=== PATIENT | male | born 1935 | race Caucasian/White ===

== ENCOUNTER → 2017-02-27 | Outpatient (CLI) | payer MEDICARE ==
[~2017-02-27] MED LIST: AMLO5TAB2 PO; DONE5TAB7 PO; FLUT16SP2 NS; GABA-827 PO; HYDR1TAB12 PO; HYDR25TA6 PO; LOSA100T6 PO; OMEP-110 PO; OMEP40CA6 PO; OXYC5CAP4 PO; PANT40TA3 PO; SUCR1ORA11 PO; TERA10CA3 PO; TRAZ100T15 PO
== END | disposition home or self-care (01) ==
LOC: CFH 09:09
PROVIDERS: ATTEND Genetic Counselor, MS
DX: K76.89 Other specified diseases of liver (principal)
CPT/HCPCS: 76700

== ENCOUNTER 2017-03-07 16:54 | Inpatient (IN) | payer MEDICARE ==
[~2017-03-07] VITALS: Ht 165.1 cm; Wt 60.1 kg
[2017-03-07] MEDS ORDERED: SODIUM CHLORIDE 0.9% 1,000 ML IV ONE ×2 (17:10→19:03)
[2017-03-07] MEDS ORDERED: SODIUM CHLORIDE 0.9% 1,000ML IVBOLUS ONE (17:30)
[2017-03-07] MEDS ORDERED: LEVOFLOXACIN/PMX 750MG/150ML 150 ML IVPB ONE (17:30)
[2017-03-07] MEDS ORDERED: SODIUM CHLORIDE FLUSH 10ML SYR IVF ONE (17:30)
[2017-03-07 17:35] LABS: ASPARTATE AMINO TRANSFERASE 15 U/L (15-37); BLOOD UREA NITROGEN 18 mg/dL (7-18)
[2017-03-07] MEDS: PLEASE ENTER HEIGHT MC SCH (17:39)
[2017-03-07] MEDS ORDERED: LEVOFLOXACIN/PMX 750MG/150ML 150 ML ONE (17:55)
[2017-03-07] MEDS ORDERED: BUPR1PAT TD (18:10)
[2017-03-07 18:22] LABS: ABG COLLECTION SITE RIGHT RADIAL; COLLATERAL CIRCULATION TESTING NORMAL
[2017-03-07] MEDS ORDERED: SODIUM CHLORIDE FLUSH 10ML SYR IVF PRN (19:30)
[2017-03-07] MEDS ORDERED: GUAIFENESIN/DM 200-20MG, 10ML UDC PO PRN (20:00)
[2017-03-07] MEDS ORDERED: ONDANSETRON 2MG/ML, 2ML IVPush PRN (20:00)
[2017-03-07] MEDS: DONEPEZIL 5 MG TABLET PO SCH (21:00)
[2017-03-07] MEDS: SUCRALFATE 1 GM/10 ML UDC PO SCH (21:00)
[2017-03-07] MEDS: GABAPENTIN 400 MG CAPSULE PO SCH (21:00)
[2017-03-07 21:52] VITALS: BP 98/59
[2017-03-07] MEDS: SODIUM CHLORIDE 0.9% 1,000 ML IV SCH (22:32)
[2017-03-07] MEDS: HEPARIN 5,000 UNITS/ML, 1ML SQ SCH (22:48)
[2017-03-07] MEDS: AMPICILLIN/SULBACTAM 3 GM in SODIUM CHLORIDE 0.9% 100 ML IV SCH (22:49)
[2017-03-08] MEDS: PLEASE ENTER HEIGHT MC SCH (01:30)
[2017-03-08 02:00] VITALS: BP 125/69
[2017-03-08] MEDS: AMPICILLIN/SULBACTAM 3 GM in SODIUM CHLORIDE 0.9% 100 ML IV SCH ×3 (05:59→18:20)
[2017-03-08] MEDS: SODIUM CHLORIDE 0.9% 1,000 ML IV SCH ×2 (06:01→16:36)
[2017-03-08] MEDS: HEPARIN 5,000 UNITS/ML, 1ML SQ SCH ×2 (06:03→16:37)
[2017-03-08 06:09] LABS: BLOOD UREA NITROGEN 22 mg/dL (7-18)
[2017-03-08 06:19] LABS: DIFF TOTAL CELLS COUNTED 100 CELL DIFF
[2017-03-08 06:21] LABS: VERIFY COUNTS? YES
[2017-03-08] MEDS: SUCRALFATE 1 GM/10 ML UDC PO SCH ×4 (07:00→20:29)
[2017-03-08 07:25] VITALS: BP 105/50
[2017-03-08] MEDS: GABAPENTIN 400 MG CAPSULE PO SCH ×3 (09:00→20:29)
[2017-03-08] MEDS: PANTOPRAZOLE 40 MG IV IVPush SCH (09:32)
[2017-03-08] MEDS: FLUTICASONE NASAL SPRAY 16GM NAS SCH (10:52)
[2017-03-08 14:06] VITALS: BP 146/62
[2017-03-08] MEDS ORDERED: NICOTINE 7 MG/24 HR PATCH.TD24 TD SCH (18:00)
[2017-03-08 20:00] VITALS: BP 115/79
[2017-03-08] MEDS: ACETAMINOPHEN 325 MG TABLET PO PRN (20:29)
[2017-03-08] MEDS: DONEPEZIL 5 MG TABLET PO SCH (20:30)
[2017-03-09] MEDS: AMPICILLIN/SULBACTAM 3 GM in SODIUM CHLORIDE 0.9% 100 ML IV SCH ×3 (00:35→13:33)
[2017-03-09] MEDS: SODIUM CHLORIDE 0.9% 1,000 ML IV SCH ×2 (00:35→11:02)
[2017-03-09] MEDS: HEPARIN 5,000 UNITS/ML, 1ML SQ SCH ×2 (00:36→08:11)
[2017-03-09 02:00] VITALS: BP 148/65
[2017-03-09] MEDS: ACETAMINOPHEN 325 MG TABLET PO PRN (02:51)
[2017-03-09 07:42] LABS: BLOOD UREA NITROGEN 14 mg/dL (7-18)
[2017-03-09 07:48] LABS: DIFF TOTAL CELLS COUNTED 100 CELL DIFF
[2017-03-09 07:50] LABS: VERIFY COUNTS? YES
[2017-03-09] MEDS: SUCRALFATE 1 GM/10 ML UDC PO SCH ×2 (08:11→12:00)
[2017-03-09] MEDS: PANTOPRAZOLE 40 MG IV IVPush SCH (08:11)
[2017-03-09] MEDS: FLUTICASONE NASAL SPRAY 16GM NAS SCH (08:11)
[2017-03-09] MEDS: GABAPENTIN 400 MG CAPSULE PO SCH (08:12)
[2017-03-09 09:24] VITALS: BP 137/71
[2017-03-09] MEDS ORDERED: KETOROLAC 30 MG/1 ML IVPush ONE ×2 (11:30→12:00)
[2017-03-09] MEDS ORDERED: AMOX1TAB64 PO (12:01)
[2017-03-09 14:00] VITALS: BP 164/67
== END 2017-03-09 14:40 | disposition home or self-care (01) | DRG 871 ==
LOC: EDBD 16:54 → EDSEX 16:54 → MERGE 16:54 → ED 17:08 → EDIP 19:03 → 4EST 20:14
PROVIDERS: ADMIT Hospitalist; ATTEND Hospitalist
DX: A41.9 Sepsis, unspecified organism (principal); G92 Toxic encephalopathy; J69.0 Pneumonitis due to inhalation of food and vomit; J96.91 Respiratory failure, unspecified with hypoxia; E87.2 Acidosis; J90 Pleural effusion, not elsewhere classified; N17.9 Acute kidney failure, unspecified; T40.601A Poisoning by unspecified narcotics, accidental (unintentional), initial encounter; D63.8 Anemia in other chronic diseases classified elsewhere; F02.80 Dementia in other diseases classified elsewhere, unspecified severity, without behavioral disturbance, psychotic disturbance, mood disturbance, and anxiety; G30.9 Alzheimer's disease, unspecified; G47.30 Sleep apnea, unspecified; G89.29 Other chronic pain; I10 Essential (primary) hypertension; I44.7 Left bundle-branch block, unspecified; I73.9 Peripheral vascular disease, unspecified; K21.9 Gastro-esophageal reflux disease without esophagitis; K59.00 Constipation, unspecified; N40.0 Benign prostatic hyperplasia without lower urinary tract symptoms; Z79.891 Long term (current) use of opiate analgesic; Z85.118 Personal history of other malignant neoplasm of bronchus and lung; Z88.0 Allergy status to penicillin; Z90.2 Acquired absence of lung [part of]; Y92.89 Other specified places as the place of occurrence of the external cause
CPT/HCPCS: 36415; 36600; 70450; 71010; 80047; 80048; 80053; 81003; 82570; 82803; 83605; 83880; 84132; 84145; 84300; 84484; 85025; 85610; 85730; 87040; 87070; 87205; 93005; 96361; 96365; J0295; J1644; J1885; J1956; C9113; J7030

== ENCOUNTER 2018-07-10 19:02 | Inpatient (IN) | payer MEDICARE ==
[~2018-07-10] VITALS: Ht 162.6 cm; Wt 67.5 kg
[~2018-07-10 19:02] MED LIST changes: -AMLO5TAB2 PO; +AMLO5TAB7 PO; +AMOX1TAB64 PO; +BUPR1PAT7 TD; -LOSA100T6 PO; +LOSA100T7 PO; +OXYC5CAP2 PO; -OXYC5CAP4 PO; +TRAZ-137 PO; -TRAZ100T15 PO
[2018-07-10] MEDS ORDERED: HYDROmorphone 2 MG/ML, 1ML ONE ×2 (19:18→20:33)
[2018-07-10] MEDS ORDERED: SODIUM CHLORIDE FLUSH 10ML SYR IVF ONE (19:30)
[2018-07-10] MEDS ORDERED: ONDANSETRON 2MG/ML, 2ML IVPush ONE (19:30)
[2018-07-10] MEDS: HYDROmorphone 2 MG/ML, 1ML IVPush PRN ×2 (19:32→20:41)
[2018-07-10 19:44] LABS: BASOPHILS # (AUTO) 0.05 x10^3/uL (0-0.1); BASOPHILS % (AUTO) 0 % (0-1); EOSINOPHILS # (AUTO) 0.03 x10^3/uL (0-0.4); EOSINOPHILS % (AUTO) 0 % (1-7); LYMPHOCYTES # (AUTO) 1.07 x10^3/uL (1-3.4); LYMPHOCYTES % (AUTO) 8 % (22-44); MD NO; MEAN CORPUSCULAR HEMOGLOBIN 31.5 pg (27.5-34.5); MEAN CORPUSCULAR HGB CONC 33.3 g/dL (33.2-36.2); MEAN CORPUSCULAR VOLUME 94.4 fL (81-97); MEAN PLATELET VOLUME 6.5 fL (7.4-10.4); MONOCYTES # (AUTO) 0.72 x10^3/uL (0.2-0.8); MONOCYTES % (AUTO) 5 % (2-9); NEUTROPHILS # (AUTO) 11.88 x10^3/uL (1.8-6.8); NEUTROPHILS % (AUTO) 86 % (42-75); PLATELET COUNT 239 x10^3/uL (130-400); RED BLOOD COUNT 4.47 x10^6/uL (4.38-5.82); RED CELL DISTRIBUTION WIDTH 13.9 % (9.4-14.8)
[2018-07-10 19:55] LABS: ALBUMIN 3.5 g/dL (3.4-5.0); ANION GAP 7 mmol/L (5-15); CALCIUM 8.4 mg/dL (8.5-10.1); CHLORIDE 107 mmol/L (98-107); CREATININE 1.02 mg/dL (0.7-1.3)
[2018-07-10 19:58] LABS: INTERNATIONAL NORMALIZED RATIO 1.03 (0.93-1.1); PROTHROMBIN TIME 10.7 Seconds (9.6-11.5)
[2018-07-10] MEDS ORDERED: BISACODYL 10 MG SUPP PR PRN (21:30)
[2018-07-10] MEDS ORDERED: ONDANSETRON ODT 4 MG PO PRN (21:30)
[2018-07-10] MEDS: GABAPENTIN 400 MG CAPSULE PO SCH (23:00)
[2018-07-10] MEDS: DONEPEZIL 5 MG TABLET PO SCH (23:00)
[2018-07-10] MEDS: SUCRALFATE 1 GM TABLET PO SCH (23:00)
[2018-07-10] MEDS: SODIUM CHLORIDE 0.9% 1,000 ML IV SCH (23:00)
[2018-07-10] MEDS: morphine SULFATE 10 MG/ML, 1ML IVPush PRN ×2 (23:24→23:41)
[2018-07-10 23:42] VITALS: BP 168/66
[2018-07-11] MEDS ORDERED: TRAZ-136 PO (00:14)
[2018-07-11] MEDS ORDERED: CYCL5TAB PO (00:14)
[2018-07-11] MEDS ORDERED: ALBU8.5H8 INH (00:14)
[2018-07-11 01:41] VITALS: BP 105/55
[2018-07-11] MEDS: SUCRALFATE 1 GM TABLET PO SCH ×4 (04:58→19:41)
[2018-07-11 05:26] LABS: BASOPHILS # (AUTO) 0.03 x10^3/uL (0-0.1); BASOPHILS % (AUTO) 0 % (0-1); EOSINOPHILS # (AUTO) 0.07 x10^3/uL (0-0.4); EOSINOPHILS % (AUTO) 1 % (1-7); LYMPHOCYTES # (AUTO) 1.56 x10^3/uL (1-3.4); LYMPHOCYTES % (AUTO) 20 % (22-44); MD NO; MEAN CORPUSCULAR HEMOGLOBIN 31.6 pg (27.5-34.5); MEAN CORPUSCULAR HGB CONC 33.4 g/dL (33.2-36.2); MEAN CORPUSCULAR VOLUME 94.7 fL (81-97); MEAN PLATELET VOLUME 6.6 fL (7.4-10.4); MONOCYTES # (AUTO) 0.66 x10^3/uL (0.2-0.8); MONOCYTES % (AUTO) 9 % (2-9); NEUTROPHILS # (AUTO) 5.46 x10^3/uL (1.8-6.8); NEUTROPHILS % (AUTO) 70 % (42-75); PLATELET COUNT 209 x10^3/uL (130-400); RED BLOOD COUNT 3.87 x10^6/uL (4.38-5.82); RED CELL DISTRIBUTION WIDTH 13.9 % (9.4-14.8)
[2018-07-11 05:33] LABS: ANION GAP 7 mmol/L (5-15); CALCIUM 7.8 mg/dL (8.5-10.1); CHLORIDE 107 mmol/L (98-107)
[2018-07-11 05:38] LABS: ALANINE AMINOTRANSFERASE 22 U/L (12-78); ALKALINE PHOSPHATASE 69 U/L (45-117); BILIRUBIN,TOTAL 0.6 mg/dL (0.2-1.0); CREATININE 1.04 mg/dL (0.7-1.3); TOTAL PROTEIN 6.5 g/dL (6.4-8.2)
[2018-07-11] MEDS ORDERED: FENTANYL PF 250 MCG/5ML ONE (06:57)
[2018-07-11] MEDS ORDERED: ROCURONIUM 10MG/ML,5ML ONE (07:00)
[2018-07-11] MEDS ORDERED: PROPOFOL 10 MG/ML, 20ML ONE (07:01)
[2018-07-11] MEDS ORDERED: BACITRACIN 50,000 UNIT ONE (07:09)
[2018-07-11] MEDS ORDERED: SUCCINYLCHOLINE 20 MG/ML, 10ML ONE (07:12)
[2018-07-11] MEDS ORDERED: CEFAZOLIN 1,000 MG ONE (07:12)
[2018-07-11] MEDS ORDERED: VASOPRESSIN 20 UNIT/ML, 1ML ONE (07:28)
[2018-07-11] MEDS ORDERED: ALBUTEROL HFA 90 MCG/SPRAY ONE (07:28)
[2018-07-11] MEDS ORDERED: EPHEDRINE 50 MG/ML, 1ML IVPush PRN (07:30)
[2018-07-11] MEDS ORDERED: LABETALOL 5MG/ML, 20ML IV PRN (07:30)
[2018-07-11] MEDS ORDERED: ONDANSETRON ODT 8 MG PO PRN (07:30)
[2018-07-11] MEDS ORDERED: MEPERIDINE/PF 25MG/0.5ML IVPush PRN (07:30)
[2018-07-11] MEDS ORDERED: ONDANSETRON 2MG/ML, 2ML IV PRN (07:30)
[2018-07-11] MEDS ORDERED: hydrALAzine 20 MG/ML, 1ML IV PRN (07:30)
[2018-07-11] MEDS ORDERED: LORazepam 2 MG/ML, 1ML IVPush PRN (07:30)
[2018-07-11] MEDS ORDERED: HYDROmorphone 1 MG/ML, 1ML IV PRN (07:30)
[2018-07-11] MEDS ORDERED: PROMETHAZINE 12.5 MG SUPP PR PRN (07:30)
[2018-07-11] MEDS ORDERED: ACETAMINOPHEN 325 MG TABLET PO PRN (07:30)
[2018-07-11] MEDS ORDERED: MORPHINE SULFATE 4 MG/ML, 1ML IVPush PRN (07:30)
[2018-07-11] MEDS ORDERED: PROMETHAZINE 25 MG/ML, 1ML IV PRN (07:30)
[2018-07-11] MEDS ORDERED: MIDAZOLAM 1 MG/ML, 2ML IV PRN (07:30)
[2018-07-11] MEDS ORDERED: HALOPERIDOL 5 MG/ML IV PRN (07:30)
[2018-07-11] MEDS ORDERED: ALBUTEROL SULFATE 2.5 MG/3 ML NPPB PRN (07:30)
[2018-07-11] MEDS ORDERED: ONDANSETRON 2MG/ML, 2ML ONE (08:45)
[2018-07-11] MEDS ORDERED: DEXAMETHASONE 4 MG/ML, 1ML ONE ×2 (08:45)
[2018-07-11] MEDS ORDERED: KETOROLAC 30 MG/1 ML ONE (09:00)
[2018-07-11] MEDS: FLUTICASONE NASAL SPRAY 16GM NAS SCH (09:00)
[2018-07-11] MEDS ORDERED: OXYcodone 5 MG/5 ML ORAL.SOL UDC ONE ×2 (09:01→09:38)
[2018-07-11] MEDS ORDERED: FENTANYL PF 100 MCG/2ML ONE (09:01)
[2018-07-11] MEDS: FENTANYL PF 100 MCG/2ML IV PRN ×4 (09:15→09:30)
[2018-07-11] MEDS: OXYcodone 5 MG/5 ML ORAL.SOL UDC PO PRN ×2 (09:20→09:40)
[2018-07-11] MEDS ORDERED: MEPERIDINE/PF 50 MG/ML ONE (09:30)
[2018-07-11] MEDS ORDERED: SUCRALFATE 1 GM/10 ML UDC ONE ×3 (11:14→19:36)
[2018-07-11] MEDS: TERAZOSIN 5MG CAPSULE PO SCH (11:19)
[2018-07-11] MEDS: GABAPENTIN 400 MG CAPSULE PO SCH ×3 (11:19→21:10)
[2018-07-11] MEDS: PANTOPROZOLE 40MG TABLET PO SCH (11:21)
[2018-07-11] MEDS: SODIUM CHLORIDE 0.9% 1,000 ML IV SCH (11:21)
[2018-07-11] MEDS: CEFAZOLIN PMX 2GM/50ML 50 ML IVPB SCH ×2 (11:27→19:24)
[2018-07-11 11:35] VITALS: BP 104/62
[2018-07-11] MEDS ORDERED: ENOXAPARIN 40 MG/0.4 ML SQ SCH (12:30)
[2018-07-11] MEDS: morphine SULFATE 10 MG/ML, 1ML IVPush PRN ×3 (12:31→19:40)
[2018-07-11 13:42] VITALS: BP 103/46
[2018-07-11] MEDS: ACETAMINOPHEN 325 MG TABLET PO PRN ×2 (14:38→21:10)
[2018-07-11] MEDS: METHOCARBAMOL 500 MG TABLET PO PRN (14:38)
[2018-07-11 19:26] VITALS: BP 93/42
[2018-07-11] MEDS: DONEPEZIL 5 MG TABLET PO SCH (21:10)
[2018-07-11 22:28] LABS: CLOSTRIDIUM DIFFICILE ANTIGEN NEGATIVE; CLOSTRIDIUM DIFFICILE TOXIN NEGATIVE (Negative)
[2018-07-12 00:50] VITALS: BP 91/49
[2018-07-12] MEDS: morphine SULFATE 10 MG/ML, 1ML IVPush PRN ×6 (01:06→21:06)
[2018-07-12] MEDS: METHOCARBAMOL 500 MG TABLET PO PRN ×2 (01:19→18:05)
[2018-07-12 04:14] VITALS: BP 107/50
[2018-07-12] MEDS: SODIUM CHLORIDE 0.9% 1,000 ML IV SCH (04:20)
[2018-07-12 05:30] LABS: CHLORIDE 107 mmol/L (98-107)
[2018-07-12 05:32] LABS: BASOPHILS # (AUTO) 0.02 x10^3/uL (0-0.1); BASOPHILS % (AUTO) 0 % (0-1); EOSINOPHILS % (AUTO) 0 % (1-7); LYMPHOCYTES # (AUTO) 1.35 x10^3/uL (1-3.4); LYMPHOCYTES % (AUTO) 13 % (22-44); MD NO; MEAN CORPUSCULAR HEMOGLOBIN 31.8 pg (27.5-34.5); MEAN CORPUSCULAR HGB CONC 33.7 g/dL (33.2-36.2); MEAN CORPUSCULAR VOLUME 94.5 fL (81-97); MEAN PLATELET VOLUME 7.2 fL (7.4-10.4); MONOCYTES # (AUTO) 0.71 x10^3/uL (0.2-0.8); MONOCYTES % (AUTO) 7 % (2-9); NEUTROPHILS # (AUTO) 8.32 x10^3/uL (1.8-6.8); NEUTROPHILS % (AUTO) 80 % (42-75); PLATELET COUNT 190 x10^3/uL (130-400); RED BLOOD COUNT 2.84 x10^6/uL (4.38-5.82); RED CELL DISTRIBUTION WIDTH 14.1 % (9.4-14.8)
[2018-07-12 05:41] LABS: ALANINE AMINOTRANSFERASE 18 U/L (12-78); ALBUMIN 2.7 g/dL (3.4-5.0); ALKALINE PHOSPHATASE 54 U/L (45-117); ANION GAP 11 mmol/L (5-15); BILIRUBIN,TOTAL 0.4 mg/dL (0.2-1.0); CALCIUM 7.8 mg/dL (8.5-10.1); CREATININE 1.77 mg/dL (0.7-1.3); TOTAL PROTEIN 5.8 g/dL (6.4-8.2)
[2018-07-12 07:15] VITALS: BP 120/49
[2018-07-12] MEDS: SUCRALFATE 1 GM TABLET PO SCH ×4 (07:22→21:06)
[2018-07-12] MEDS ORDERED: SUCRALFATE 1 GM/10 ML UDC ONE ×3 (08:23→16:53)
[2018-07-12] MEDS: TERAZOSIN 5MG CAPSULE PO SCH (08:32)
[2018-07-12] MEDS: GABAPENTIN 400 MG CAPSULE PO SCH ×3 (08:32→21:06)
[2018-07-12] MEDS: PANTOPROZOLE 40MG TABLET PO SCH (08:32)
[2018-07-12] MEDS: FLUTICASONE NASAL SPRAY 16GM NAS SCH (08:32)
[2018-07-12] MEDS ORDERED: ENOXAPARIN 30 MG/0.3 ML SQ SCH (12:30)
[2018-07-12 13:08] VITALS: BP 122/45
[2018-07-12] MEDS: HYDROcodone/APAP 5/325 TABLET PO PRN ×2 (18:08→22:56)
[2018-07-12 19:28] VITALS: BP 104/37
[2018-07-12] MEDS: DONEPEZIL 5 MG TABLET PO SCH (21:06)
[2018-07-13] VITALS (10 sets, daily range): BP systolic 111–144; BP diastolic 49–63
[2018-07-13] MEDS: morphine SULFATE 10 MG/ML, 1ML IVPush PRN ×2 (00:58→05:04)
[2018-07-13] MEDS: SODIUM CHLORIDE 0.9% 1,000 ML IV SCH ×3 (00:59→20:09)
[2018-07-13] MEDS: HYDROcodone/APAP 5/325 TABLET PO PRN ×5 (02:53→22:02)
[2018-07-13] MEDS: METHOCARBAMOL 500 MG TABLET PO PRN ×3 (02:53→22:02)
[2018-07-13 05:34] LABS: BASOPHILS # (AUTO) 0.02 x10^3/uL (0-0.1); BASOPHILS % (AUTO) 0 % (0-1); EOSINOPHILS # (AUTO) 0.07 x10^3/uL (0-0.4); EOSINOPHILS % (AUTO) 1 % (1-7); LYMPHOCYTES # (AUTO) 1.53 x10^3/uL (1-3.4); LYMPHOCYTES % (AUTO) 19 % (22-44); MD NO; MEAN CORPUSCULAR HEMOGLOBIN 31.4 pg (27.5-34.5); MEAN CORPUSCULAR HGB CONC 33.2 g/dL (33.2-36.2); MEAN CORPUSCULAR VOLUME 94.6 fL (81-97); MEAN PLATELET VOLUME 7.1 fL (7.4-10.4); MONOCYTES # (AUTO) 0.63 x10^3/uL (0.2-0.8); MONOCYTES % (AUTO) 8 % (2-9); NEUTROPHILS # (AUTO) 5.79 x10^3/uL (1.8-6.8); NEUTROPHILS % (AUTO) 72 % (42-75); PLATELET COUNT 128 x10^3/uL (130-400); RED BLOOD COUNT 2.03 x10^6/uL (4.38-5.82); RED CELL DISTRIBUTION WIDTH 14.2 % (9.4-14.8)
[2018-07-13 05:43] LABS: ALBUMIN 2.4 g/dL (3.4-5.0); ANION GAP 4 mmol/L (5-15); CALCIUM 7.5 mg/dL (8.5-10.1); CHLORIDE 110 mmol/L (98-107)
[2018-07-13 05:46] LABS: BILIRUBIN,TOTAL 0.3 mg/dL (0.2-1.0)
[2018-07-13 05:47] LABS: ALANINE AMINOTRANSFERASE 16 U/L (12-78); ALKALINE PHOSPHATASE 46 U/L (45-117); TOTAL PROTEIN 5.4 g/dL (6.4-8.2)
[2018-07-13] MEDS: SUCRALFATE 1 GM TABLET PO SCH ×4 (06:49→20:09)
[2018-07-13] MEDS: GABAPENTIN 400 MG CAPSULE PO SCH ×3 (10:31→20:08)
[2018-07-13] MEDS: TERAZOSIN 5MG CAPSULE PO SCH (10:31)
[2018-07-13] MEDS: PANTOPROZOLE 40MG TABLET PO SCH (10:31)
[2018-07-13] MEDS ORDERED: SUCRALFATE 1 GM/10 ML UDC ONE ×2 (11:40→16:32)
[2018-07-13] MEDS ORDERED: ENOXAPARIN 40 MG/0.4 ML SQ SCH (12:30)
[2018-07-13] MEDS: FLUTICASONE NASAL SPRAY 16GM NAS SCH (14:07)
[2018-07-13] MEDS: DONEPEZIL 5 MG TABLET PO SCH (20:09)
[2018-07-14] MEDS: morphine SULFATE 10 MG/ML, 1ML IVPush PRN ×4 (00:03→22:56)
[2018-07-14 01:20] VITALS: BP 133/52
[2018-07-14] MEDS: HYDROcodone/APAP 5/325 TABLET PO PRN ×6 (01:59→22:57)
[2018-07-14] MEDS: SODIUM CHLORIDE 0.9% 1,000 ML IV SCH ×3 (04:11→20:00)
[2018-07-14 05:34] LABS: ALBUMIN 2.5 g/dL (3.4-5.0); CHLORIDE 109 mmol/L (98-107)
[2018-07-14 05:37] LABS: ALANINE AMINOTRANSFERASE 16 U/L (12-78); ALKALINE PHOSPHATASE 49 U/L (45-117); ANION GAP 6 mmol/L (5-15); BILIRUBIN,TOTAL 0.6 mg/dL (0.2-1.0); CALCIUM 7.4 mg/dL (8.5-10.1); CREATININE 0.77 mg/dL (0.7-1.3); TOTAL PROTEIN 5.6 g/dL (6.4-8.2)
[2018-07-14 05:46] LABS: BASOPHILS # (AUTO) 0.02 x10^3/uL (0-0.1); BASOPHILS % (AUTO) 0 % (0-1); EOSINOPHILS # (AUTO) 0.11 x10^3/uL (0-0.4); EOSINOPHILS % (AUTO) 2 % (1-7); LYMPHOCYTES # (AUTO) 1.17 x10^3/uL (1-3.4); LYMPHOCYTES % (AUTO) 17 % (22-44); MD NO; MEAN CORPUSCULAR HEMOGLOBIN 30.6 pg (27.5-34.5); MEAN CORPUSCULAR HGB CONC 33.3 g/dL (33.2-36.2); MEAN CORPUSCULAR VOLUME 91.8 fL (81-97); MEAN PLATELET VOLUME 7.1 fL (7.4-10.4); MONOCYTES # (AUTO) 0.59 x10^3/uL (0.2-0.8); MONOCYTES % (AUTO) 8 % (2-9); NEUTROPHILS # (AUTO) 5.21 x10^3/uL (1.8-6.8); NEUTROPHILS % (AUTO) 73 % (42-75); PLATELET COUNT 130 x10^3/uL (130-400); RED BLOOD COUNT 2.77 x10^6/uL (4.38-5.82); RED CELL DISTRIBUTION WIDTH 15.2 % (9.4-14.8)
[2018-07-14] MEDS: METHOCARBAMOL 500 MG TABLET PO PRN ×2 (06:06→13:44)
[2018-07-14] MEDS: SUCRALFATE 1 GM TABLET PO SCH ×4 (06:06→20:34)
[2018-07-14 08:15] VITALS: BP 143/80
[2018-07-14] MEDS ORDERED: ENOXAPARIN 30 MG/0.3 ML SQ SCH (08:30)
[2018-07-14] MEDS: GUAIFENESIN 200 MG TABLET PO SCH ×3 (10:29→20:34)
[2018-07-14] MEDS: PANTOPROZOLE 40MG TABLET PO SCH (10:29)
[2018-07-14] MEDS: TERAZOSIN 5MG CAPSULE PO SCH (10:32)
[2018-07-14] MEDS: GABAPENTIN 400 MG CAPSULE PO SCH ×3 (10:34→20:34)
[2018-07-14] MEDS: FLUTICASONE NASAL SPRAY 16GM NAS SCH (10:36)
[2018-07-14] MEDS: ACETAMINOPHEN 325 MG TABLET PO PRN (13:45)
[2018-07-14 14:00] VITALS: BP 148/62
[2018-07-14] MEDS ORDERED: BENZOCAINE 20% SPRAY 0.5ML TP PRN (20:30)
[2018-07-14] MEDS: DONEPEZIL 5 MG TABLET PO SCH (20:34)
[2018-07-14 21:55] VITALS: BP 170/54
[2018-07-15 02:39] VITALS: BP 146/78
[2018-07-15] MEDS: HYDROcodone/APAP 5/325 TABLET PO PRN ×4 (02:48→15:34)
[2018-07-15] MEDS: morphine SULFATE 10 MG/ML, 1ML IVPush PRN ×3 (03:57→15:34)
[2018-07-15] MEDS: SODIUM CHLORIDE 0.9% 1,000 ML IV SCH (04:00)
[2018-07-15 05:30] LABS: BASOPHILS # (AUTO) 0.03 x10^3/uL (0-0.1); BASOPHILS % (AUTO) 0 % (0-1); EOSINOPHILS # (AUTO) 0.12 x10^3/uL (0-0.4); EOSINOPHILS % (AUTO) 2 % (1-7); LYMPHOCYTES # (AUTO) 1.05 x10^3/uL (1-3.4); LYMPHOCYTES % (AUTO) 13 % (22-44); MD NO; MEAN CORPUSCULAR HEMOGLOBIN 30.9 pg (27.5-34.5); MEAN CORPUSCULAR HGB CONC 33.9 g/dL (33.2-36.2); MEAN CORPUSCULAR VOLUME 91.2 fL (81-97); MEAN PLATELET VOLUME 7.2 fL (7.4-10.4); MONOCYTES % (AUTO) 7 % (2-9); NEUTROPHILS # (AUTO) 6.29 x10^3/uL (1.8-6.8); NEUTROPHILS % (AUTO) 78 % (42-75); PLATELET COUNT 185 x10^3/uL (130-400); RED BLOOD COUNT 2.98 x10^6/uL (4.38-5.82); RED CELL DISTRIBUTION WIDTH 14.7 % (9.4-14.8)
[2018-07-15 05:40] LABS: CHLORIDE 106 mmol/L (98-107)
[2018-07-15 05:45] LABS: ANION GAP 8 mmol/L (5-15); CALCIUM 8.2 mg/dL (8.5-10.1); CREATININE 0.73 mg/dL (0.7-1.3)
[2018-07-15 06:17] LABS: TROPONIN I 0.024 ng/mL (0.000-0.045)
[2018-07-15] MEDS: SUCRALFATE 1 GM TABLET PO SCH ×3 (06:42→15:41)
[2018-07-15] MEDS ORDERED: ENOXAPARIN 40 MG/0.4 ML SQ SCH (07:00)
[2018-07-15] MEDS ORDERED: ENALAPRILAT 1.25 MG/ML, 2ML ONE (07:22)
[2018-07-15 07:26] VITALS: BP 106/64
[2018-07-15] MEDS ORDERED: ENALAPRILAT 1.25 MG/ML, 2ML IV PRN ×2 (07:30)
[2018-07-15 07:36] LABS: TROPONIN I 0.023 ng/mL (0.000-0.045)
[2018-07-15] MEDS: FLUTICASONE NASAL SPRAY 16GM NAS SCH (08:00)
[2018-07-15 08:01] VITALS: BP_SYST 112; BP_SYST 145; BP_DIAS 71; BP_DIAS 94
[2018-07-15] MEDS: TERAZOSIN 5MG CAPSULE PO SCH (08:03)
[2018-07-15] MEDS: METHOCARBAMOL 500 MG TABLET PO PRN ×2 (08:03→15:34)
[2018-07-15] MEDS: GABAPENTIN 400 MG CAPSULE PO SCH ×2 (08:03→15:34)
[2018-07-15] MEDS: GUAIFENESIN 200 MG TABLET PO SCH ×2 (08:03→15:34)
[2018-07-15] MEDS: PANTOPROZOLE 40MG TABLET PO SCH (08:03)
[2018-07-15 08:07] VITALS: BP 173/64
[2018-07-15] MEDS ORDERED: HYDR-3240 PO (11:44)
[2018-07-15] MEDS ORDERED: METH500T7 PO (11:44)
[2018-07-15] MEDS ORDERED: TRAM50TA2 PO (11:44)
[2018-07-15] MEDS ORDERED: ONDA4TAB13 PO (11:44)
[2018-07-15] MEDS ORDERED: ASPI325T17 PO (11:46)
[2018-07-15] MEDS ORDERED: NYST1000 PO (14:56)
[2018-07-15 15:17] VITALS: BP 162/70
[2018-07-15] MEDS ORDERED: FLUCONAZOLE 200 MG/100 ML 100 ML IV SCH (16:30)
== END 2018-07-15 17:00 | DRG 480 ==
LOC: ED 20:17 → EDIP 21:26 → 4NOR 22:00
PROVIDERS: ADMIT Hospitalist; ATTEND Internal Medicine
PROC: 0QS606Z Reposition Right Upper Femur with Intramedullary Internal Fixation Device, Open Approach (ICD-10-PCS; principal; 2018-07-11 07:00)
PROC: 30233N1 Transfusion of Nonautologous Red Blood Cells into Peripheral Vein, Percutaneous Approach (ICD-10-PCS; 2018-07-13)
DX: S72.21XA Displaced subtrochanteric fracture of right femur, initial encounter for closed fracture (principal); N17.0 Acute kidney failure with tubular necrosis; B37.0 Candidal stomatitis; D62 Acute posthemorrhagic anemia; I45.2 Bifascicular block; W11.XXXA Fall on and from ladder, initial encounter; M51.34 Other intervertebral disc degeneration, thoracic region; M51.36 Other intervertebral disc degeneration, lumbar region; D72.829 Elevated white blood cell count, unspecified; G30.9 Alzheimer's disease, unspecified; F02.80 Dementia in other diseases classified elsewhere, unspecified severity, without behavioral disturbance, psychotic disturbance, mood disturbance, and anxiety; G89.29 Other chronic pain; I10 Essential (primary) hypertension; I95.9 Hypotension, unspecified; S41.101A Unspecified open wound of right upper arm, initial encounter; I73.9 Peripheral vascular disease, unspecified; K21.9 Gastro-esophageal reflux disease without esophagitis; K90.0 Celiac disease; M47.816 Spondylosis without myelopathy or radiculopathy, lumbar region; N40.0 Benign prostatic hyperplasia without lower urinary tract symptoms; Z83.3 Family history of diabetes mellitus; Z85.118 Personal history of other malignant neoplasm of bronchus and lung; Y93.89 Activity, other specified; Y92.89 Other specified places as the place of occurrence of the external cause; Z87.891 Personal history of nicotine dependence; Z98.41 Cataract extraction status, right eye; Z98.42 Cataract extraction status, left eye; Z87.01 Personal history of pneumonia (recurrent); Z88.0 Allergy status to penicillin; Z88.6 Allergy status to analgesic agent; Z91.040 Latex allergy status
CPT/HCPCS: 36415; 51702; 71045; 72040; 72072; 72100; 76001; 80048; 80053; 82040; 83735; 84100; 84484; 85025; 85610; 85730; 86850; 86900; 86923; 87324; 93005; 99285; C1713; G0378; J0690; J1100; J1170; J1650; J1885; J2175; J2405; J2704; J3010; J0330; J1450; J2270; J7030; P9016

== ENCOUNTER → 2018-11-22 | Outpatient (CLI) | payer MEDICARE ==
[~2018-11-22] MED LIST changes: +ALBU8.5H8 INH; +AMLO-150 PO; -AMLO5TAB7 PO; +ASPI325T17 PO; +CYCL5TAB PO; +HYDR-3240 PO; +LOSA100T14 PO; -LOSA100T7 PO; +METH500T7 PO; +NYST1000 PO; +ONDA4TAB13 PO; +TRAM50TA2 PO; +TRAZ50TA66 PO
== END | disposition home or self-care (01) ==
LOC: CFH 09:18
DX: M51.37 Other intervertebral disc degeneration, lumbosacral region (principal); M43.8X6 Other specified deforming dorsopathies, lumbar region; M48.061 Spinal stenosis, lumbar region without neurogenic claudication; M25.78 Osteophyte, vertebrae
CPT/HCPCS: 72120; 72148

== ENCOUNTER → 2019-12-12 | Outpatient (CLI) | payer MEDICARE ==
[~2019-12-12] MED LIST changes: -HYDR1TAB12 PO; +HYDR1TAB13 PO; +OMEP40CA42 PO; -OMEP40CA6 PO; -SUCR1ORA11 PO; +SUCR1ORA14 PO; -TRAZ-137 PO; +TRAZ-175 PO
== END | disposition home or self-care (01) ==
LOC: CVU 08:37
PROVIDERS: ATTEND Nurse Practitioner Family
DX: I70.293 Other atherosclerosis of native arteries of extremities, bilateral legs (principal); I10 Essential (primary) hypertension; F17.200 Nicotine dependence, unspecified, uncomplicated; Z85.118 Personal history of other malignant neoplasm of bronchus and lung
CPT/HCPCS: 93922; 93925

== ENCOUNTER 2020-07-31 11:44 | Emergency (ER) | payer MEDICARE ==
[~2020-07-31] VITALS: Ht 152.4 cm; Wt 53.8 kg
--- NOTE | 2020-07-31 12:43 | NUR ---
Pt arrives from pain clinic after it was noted pt was suffering from hypoxemia. Pt found in low 50% room air and no interventions did not help. Pt in triage was 75% for us. Pt reports he feels fine and on a few liters of o2 has recovered well. Pt has no complaints at this time. Pt denies no truama.
[2020-07-31 13:10] LABS: BASOPHILS % (AUTO) 1 % (0-1); EOSINOPHILS % (AUTO) 3 % (1-7); LYMPHOCYTES % (AUTO) 21 % (22-44); MEAN CORPUSCULAR HEMOGLOBIN 31.6 pg (27.5-34.5); MEAN PLATELET VOLUME 6.9 fL (7.4-10.4); MONOCYTES % (AUTO) 5 % (2-9); NEUTROPHILS % (AUTO) 70 % (42-75); PLATELET COUNT 225 x10^3/uL (130-400); RED BLOOD COUNT 3.83 x10^6/uL (4.38-5.82); RED CELL DISTRIBUTION WIDTH 13.6 % (9.4-14.8)
[2020-07-31 13:15] LABS: MD NO
[2020-07-31 13:23] LABS: ALBUMIN 3.5 g/dL (3.4-5.0); ANION GAP 1 mmol/L (5-15); CALCIUM 8.6 mg/dL (8.5-10.1); CHLORIDE 106 mmol/L (98-107); CREATININE 0.93 mg/dL (0.7-1.3)
--- NOTE | 2020-07-31 14:56 | NUR ---
Pt placed on room air at this time.
--- NOTE | 2020-07-31 15:34 | NUR ---
Pts room air sat failed and patient in less than 5 minutes started having hypoxemia in the low 80s%. Pt reports he was more tired when I turned the oxygen off. Pt assisted to restroom via contact gaurd and cane use with supplemental 02
--- NOTE | 2020-07-31 15:36 | NUR ---
Provider asked for Narcan at this time to see if that could assist with hypoxemia in reversing it as patient takes alot of opiod based medications fro chronic pain.
[2020-07-31 15:54] LABS: TROPONIN I < 0.015 ng/mL (0.000-0.045)
[2020-07-31] MEDS ORDERED: OMNIPAQUE 350 MG/ML, 100ML BOTTLE ONE (16:33)
--- NOTE | 2020-07-31 17:24 | NUR ---
Pts daughter verbalized that father is normally on oxygen at home. Pt also still smokes. Francisco Javier reports he is on oxygen all day and has a portable device. Holly will bring device.
--- NOTE | 2020-07-31 18:41 | NUR ---
Patient/Caregiver given discharge instructions and they have confirmed that they understand the instructions. Patient ambulatory with steady gait.
[2020-07-31 18:42] VITALS: BP 107/85
== END 2020-07-31 18:44 | disposition home or self-care (01) ==
LOC: ED 12:44
DX: R09.02 Hypoxemia (principal); R06.02 Shortness of breath; I44.7 Left bundle-branch block, unspecified; I10 Essential (primary) hypertension; Z85.118 Personal history of other malignant neoplasm of bronchus and lung
CPT/HCPCS: 36415; 71045; 71275; 80048; 82040; 84484; 85025; 85379; 93005; 99285; Q9967